=== PATIENT | female | born 1950 | race Caucasian/White ===

== ENCOUNTER 2017-11-21 12:41 | Emergency (ER) | payer OTHER ==
[~2017-11-21] VITALS: Ht 157.5 cm; Wt 62.6 kg
--- NOTE | ~2017-11-21 | EKG ---
[place] [address] [facility] [place] [address] ELECTROCARDIOGRAM REPORT Name: ALLAN MARQUIS MANDEL Room #: [facility]#: [id number] Admission: 11/21/17 Attend Phys: Discharge: Date of : 50 Report #: [id number] THIS REPORT FOR: //name// [facility] ED Test Date: 2017-11-21 Test Time: 13:16:15 Pat Name: MARQUIS LEMUS TEQUILA Department: Room: Gender: F Plumbing Technician: : 1950 Requested By: Haley Curtis Order Number: [id number] MD: Dane Medley Measurements Intervals [place] Rate: 83 P: 43 WA: 111 QRS: 20 QRSD: 81 T: 64 QT: 408 QTc: 480 Interpretive Statements Sinus rhythm Borderline short [place] interval Borderline repolarization abnormality No previous ECG available for comparison Electronically Signed On 11-21-2017 13:34:11 CDT by Dane Medley [email or web address] <ELECTRONICALLY SIGNED> By: Dane Medley MD 11/21/17 1334 1316 1316 MD KEV Pappas
[2017-11-21 13:28] LABS: ABSOLUTE NEUTROPHILS 4.5 thou/uL (1.4-8.2); BASOPHILS 1.7 % (0.0-2.0); EOSINOPHILS 0.3 % (0.0-3.0); HEMATOCRIT 24.4 % (37.0-47.0); HEMOGLOBIN 7.9 gm/dL (12.0-15.0); LYMPHOCYTES 32.7 % (24.0-44.0); MCH 25.4 pg (26.0-34.0); MCHC 32.5 g/dL (28.0-37.0); MCV 78.3 fL (80.0-100.0); MONOCYTES 5.6 % (1.0-8.0); PLATELET COUNT 445 thou/uL (150-400); POLYS 59.7 % (36.0-66.0); RBC 3.11 mil/uL (4.20-5.00); RDW 16.4 % (10.5-14.5); WBC 7.5 thou/uL (4.0-11.0)
[2017-11-21 13:59] LABS: ANION GAP 9 mmol/L (7-16); BUN 15 mg/dL (7-18); CALCIUM 8.9 mg/dL (8.5-10.1); CHLORIDE 99 mmol/L (98-107); CO2 27 mmol/L (21-32); CREATININE 0.9 mg/dL (0.6-1.0); GLUCOSE 190 mg/dL (74-106); POTASSIUM 3.4 mmol/L (3.5-5.1); SODIUM 135 mmol/L (136-145)
[2017-11-21 14:07] LABS: ALBUMIN 3.6 g/dL (3.4-5.0); LIPASE 153 U/L (73-393); SGPT 13 U/L (30-65); TOTAL BILIRUBIN 0.2 mg/dL (<0.1-1.0); TOTAL PROTEIN 7.5 g/dL (6.4-8.2); TROPONIN-I <0.06 ng/mL (<0.06)
[2017-11-21 14:29] LABS: URINE BILIRUBIN NEGATIVE (Negative); URINE BLOOD 1+ (Negative); URINE CLARITY CLEAR; URINE COLOR YELLOW; URINE GLUCOSE-RANDOM* NEGATIVE (Negative); URINE KETONES NEGATIVE (Negative); URINE LEUKOCYTES-REFLEX NEGATIVE (Negative); URINE NITRITE-REFLEX NEGATIVE (Negative); URINE PROTEIN (DIPSTICK) NEGATIVE (Negative); URINE UROBILINOGEN 0.2 E.U./dl (0.2-1.0)
[2017-11-21 14:40] LABS: SQUAMOUS >10 Many /LPF (0-3)
[2017-11-21 14:41] LABS: BACTERIA-REFLEX None Seen /HPF (None Seen); CASTS None Seen /LPF (None Seen); CRYSTALS None Seen /LPF (None Seen); URINE RBC 3-10 Few /HPF (0-2); URINE WBC-REFLEX 0-5 Rare /HPF (0-5); YEAST-REFLEX Present (None Seen)
[2017-11-21 14:43] LABS: SGOT 18 U/L (15-37)
[2017-11-21] MEDS ORDERED: NEURONTIN 300300 M1 PO (15:03)
[2017-11-21] MEDS ORDERED: QUETIAPINE FUM100 MG PO (15:19)
[2017-11-21] MEDS ORDERED: PRINIVIL20 MG PO (15:20)
[2017-11-21] MEDS ORDERED: PERCOCET PO (15:20)
[2017-11-21] MEDS ORDERED: ATORVASTATIN CA40 MG PO (15:20)
[2017-11-21] MEDS ORDERED: CYMBALTA60 MG PO (15:21)
[2017-11-21] MEDS ORDERED: OMEPRAZOLE40 MG PO (15:21)
[2017-11-21 15:25] VITALS: BP 201/90
== END 2017-11-21 16:15 | disposition home or self-care (01) ==
LOC: ER 12:41
PROVIDERS: Student in an Organized Health Care Education/Training Program
DX: B37.9 Candidiasis, unspecified (principal); E11.40 Type 2 diabetes mellitus with diabetic neuropathy, unspecified; R11.2 Nausea with vomiting, unspecified; E78.00 Pure hypercholesterolemia, unspecified; R42 Dizziness and giddiness; R63.0 Anorexia; I10 Essential (primary) hypertension